=== PATIENT | male | born 1965 | race Two or more races ===

== ENCOUNTER 2024-08-21 16:03 | Emergency (ER) | payer OTHER ==
[~2024-08-21] VITALS: Ht 182.9 cm; Wt 91.2 kg
[2024-08-21] MEDS ORDERED: CEFTRIAXONE SODIUM 1,000 MG VIAL ONE (17:59)
[2024-08-21] MEDS ORDERED: DIPHTH,PERTUSS(ACELL),TET VAC 0.5 ML SYRINGE IM ONE ×2 (17:59→18:00)
[2024-08-21] MEDS ORDERED: CEFTRIAXONE SODIUM 1,000 MG VIAL IM ONE (18:00)
[2024-08-21] MEDS ORDERED: CEPHALEXIN500 MG PO (18:18)
== END 2024-08-21 18:28 | disposition home or self-care (01) ==
LOC: ER 16:55
DX: S81.851A Open bite, right lower leg, initial encounter (principal); W54.0XXA Bitten by dog, initial encounter; Y93.89 Activity, other specified; Y92.89 Other specified places as the place of occurrence of the external cause; Y99.9 Unspecified external cause status